=== PATIENT | female | born 1945 | race Caucasian/White ===

== ENCOUNTER → 2018-06-08 | Outpatient (CLI) | payer MEDICARE ==
[2018-06-08 13:29] LABS: Basophils % (A) 1 %; Eosinophils # (A) 0.2 k/uL (0-0.7); Eosinophils % (A) 4 %; HCT 49.4 % (34.0-46.0); HGB 15.3 gm/dL (11.4-16.0); Lymphocytes # (A) 1.3 k/uL (1.0-4.8); Lymphocytes % (A) 24 %; MCH 29.4 pg (25.0-35.0); MCHC 30.9 g/dL (31.0-37.0); MCV 95.3 fL (80.0-100.0); Mean Platelet Volume 7.6; Monocytes # (A) 0.4 k/uL (0-1.0); Monocytes % (A) 7 %; Neutrophils # (A) 3.4 k/uL (1.3-7.7); Neutrophils % (A) 64 %; Platelet Count 260 k/uL (150-450); RBC 5.18 m/uL (3.80-5.40); RDW 14.4 % (11.5-15.5); WBC 5.3 k/uL (3.8-10.6)
[2018-06-08 13:52] LABS: ALT 173 U/L (9-52); AST 129 U/L (14-36); Albumin 3.8 g/dL (3.5-5.0); Alkaline Phosphatase 57 U/L (38-126); Anion Gap 7 mmol/L; Blood Urea Nitrogen 15 mg/dL (7-17); Calcium 9.5 mg/dL (8.4-10.2); Carbon Dioxide 26 mmol/L (22-30); Chloride 106 mmol/L (98-107); Cholesterol 205 mg/dL (<200); Glucose 102 mg/dL (74-99); HDL Cholesterol 66 mg/dL (40-60); LDL Cholesterol,Calculated 121 mg/dL (0-99); Potassium 4.6 mmol/L (3.5-5.1); Sodium 139 mmol/L (137-145); Total Bilirubin 0.4 mg/dL (0.2-1.3); Total Protein 6.9 g/dL (6.3-8.2); Triglycerides 91 mg/dL (<150)
[2018-06-08 14:08] LABS: T4, Free (Free Thyroxine) 1.26 ng/dL (0.78-2.19)
== END | disposition home or self-care (01) ==
LOC: LABWHC1 12:19
PROVIDERS: ATTEND Family Medicine
DX: E78.5 Hyperlipidemia, unspecified (principal); E03.9 Hypothyroidism, unspecified; Z20.9 Contact with and (suspected) exposure to unspecified communicable disease
CPT/HCPCS: 36415; 80053; 80061; 84439; 84443; 84481; 85025; 86803

== ENCOUNTER → 2018-06-24 | Outpatient (CLI) | payer MEDICARE ==
--- NOTE | 2018-06-24 10:40 | US ---
EXAMINATION TYPE: US liver DATE OF EXAM: 06/24/2018 COMPARISON: NONE CLINICAL HISTORY: 73-year-old female R74.8 Abn levels serum enzymes. TECHNIQUE: Multiple sonographic images of the right upper quadrant are obtained. FINDINGS: MAILROOM COURIER NOTES: Difficult and limited exam due to patient body habitus and overlying bowel gas EXAM MEASUREMENTS: Liver Length: 17.0 cm Gallbladder Wall: 0.2 cm CBD: 0.4 cm Right Kidney: 11.0 x 5.3 x 4.4 cm Pancreas: Tail obscured by overlying bowel gas, visualized portions appear wnl Liver: Borderline in size, Attenuating, heterogeneous. Gallbladder: A couple calculi are present measuring up to 2.2 cm. No abnormal wall thickening, hydro pic change, or pericholecystic fluid. Evidence for sonographic Gonsales's sign: No CBD: wnl as visualized, distal portion obscured by bowel gas Right Kidney: No hydronephrosis. IMPRESSION: 1. Borderline hepatomegaly (17.0 cm) with hepatic steatosis. Correlate with LFTs, lipid profile, and patient risk factors. 2. Cholelithiasis with a couple gallstones measuring up to 2.2 cm. 3. No biliary ductal dilatation.
== END | disposition home or self-care (01) ==
LOC: RADUSWWP 07:31
PROVIDERS: ATTEND Family Medicine
DX: K80.20 Calculus of gallbladder without cholecystitis without obstruction (principal); K76.0 Fatty (change of) liver, not elsewhere classified
CPT/HCPCS: 76705

== ENCOUNTER → 2018-08-05 | Outpatient (CLI) | payer MEDICARE | END | disposition home or self-care (01) | LOC: LABWHC1 17:29 | PROVIDERS: ATTEND Surgery Plastic and Reconstructive Surgery | DX: Z01.810 Encounter for preprocedural cardiovascular examination (principal) | CPT/HCPCS: 36415; 93005 ==

== ENCOUNTER 2019-07-22 09:36 | Day surgery (SDC) | payer MEDICARE ==
[2019-07-21 08:19] VITALS: BMI 41.5
[~2019-07-22 09:36] MED LIST: LACTATED RINGERS 1,000 ML IV SCH
[2019-07-22] MEDS ORDERED: LACTATED RINGERS 1,000 ML IV ONE (09:52)
[2019-07-22 09:53] VITALS: TEMP 97.8
[2019-07-22] MEDS ORDERED: LIDOCAINE 1% 20 ML VIAL (10MG/ML) FOR IV START INTRADERMA ONE (09:53)
[2019-07-22] MEDS ORDERED: LIDOCAINE 1% INJ 10MG/ML (20 ML MDV) ONE (10:43)
[2019-07-22] MEDS ORDERED: PROPOFOL 10 MG/ML 20 ML VIAL IV ONE (10:43)
--- NOTE | 2019-07-22 11:03 | P.PCN ---
Date of Procedure: 07/22/19 Procedure(s) Performed: BRIEF HISTORY: Patient is a 74-year-old pleasant female scheduled for an elective colonoscopy as a part of screening for colorectal neoplasia. Her last colonoscopy was 10 years ago. PROCEDURE PERFORMED: Colonoscopy. PREOPERATIVE DIAGNOSIS: Screening for colon cancer. IV sedation per Anesthesia. PROCEDURE: After informed consent was obtained, the patient, was brought into the endoscopy unit. IV sedation was administered by Anesthesia under continuous monitoring. Digital rectal examination was normal. Initially the Olympus CF-160 flexible video colonoscope was then inserted in the rectum, gradually advanced into the cecum without any difficulty. Careful examination was performed as the scope was gradually being withdrawn. Ileocecal valve and the appendiceal orifice were visualized and appeared normal. Prep was excellent. Mucosa of the cecum, ascending colon, transverse colon, descending colon, sigmoid colon, and rectum appeared normal. Retroflexion was performed in the rectum and no lesions were seen. The patient tolerated the procedure well. IMPRESSION: Normal-appearing colon from rectum to cecum with no evidence of colorectal neoplasia. RECOMMENDATIONS: Findings of this examination were discussed with the patient as well as a family. She was advised to have a repeat screening colonoscopy in 10 years.
[2019-07-22 11:09] VITALS: RESP 16
[2019-07-22 11:23] VITALS: BP 154/87; PULSE 74
== END 2019-07-22 11:47 | disposition home or self-care (01) ==
LOC: ORWHC2ENDO 09:36
PROVIDERS: ATTEND Internal Medicine Gastroenterology
DX: Z12.11 Encounter for screening for malignant neoplasm of colon (principal); E07.9 Disorder of thyroid, unspecified; Z88.1 Allergy status to other antibiotic agents; Z87.19 Personal history of other diseases of the digestive system; Z79.890 Hormone replacement therapy; Z79.82 Long term (current) use of aspirin; Z79.899 Other long term (current) drug therapy
CPT/HCPCS: J2001; J2704; G0121

== ENCOUNTER 2019-12-10 19:42 | Emergency (ER) | payer MEDICARE ==
[2019-12-10 19:48] VITALS: BP 169/82; PULSE 103; RESP 20; TEMP 98.1
--- NOTE | 2019-12-10 21:06 | ED ---
Skin/Abscess/FB HPI - General Chief complaint: Skin/Abscess/Foreign Body Stated complaint: Open Wound Eye Time Seen by Provider: 12/10/19 19:49 Source: patient Mode of arrival: ambulatory Limitations: no limitations - History of Present Illness Initial comments: Patient is a 74-year-old female presenting to the emergency Department with complaints of a wound on her left eyelid that opened up. Patient states she had a cosmetic procedure performed on Friday and initially had dissolvable sutures in place over she feels like she either excellently with some outdoor they dissolved the next day. Patient states on Friday she called her doctor who had her come back and and 2 nylon sutures were placed. Patient states she believes those sutures have come out as she noticed her wound is still appears to be opened. She denies any fever, chills, yellow drainage from the area. She has been applying topical antibiotic 2-3 times a day for the past week. She has no other complaints at this time. She denies eye pain, blurry vision. Upon arrival to the ER her vital signs are normal. - Related Data Home Medications Medication Instructions Recorded Confirmed Cholecalciferol (Vitamin D3) 400 unit PO DAILY 07/21/19 07/21/19 [Vitamin D3] Levothyroxine Sodium [Synthroid] 75 mcg PO DAILY 07/21/19 07/21/19 Allergies Allergy/AdvReac Type Severity Reaction Status Date / Time tetracycline Allergy Rash/Hives Verified 12/10/19 19:48 Review of Systems ROS Statement: Those systems with pertinent positive or pertinent negative responses have been documented in the HPI. ROS Other: All systems not noted in ROS Statement are negative. Past Medical History Past Medical History: Eye Disorder, Thyroid Disorder Additional Past Medical History / Comment(s): SOME BLOOD IN STOOL, GLAUCOMA , History of Any Multi-Drug Resistant Organisms: None Reported Past Surgical History: Hysterectomy, Joint Replacement Additional Past Surgical History / Comment(s): LASER TREATMENT - BOTH EYES FOR GLAUCOMA , COLONOSCOPY, TOTAL RIGHT KNEE, BILATERAL CATARACT SURGERY WITH LENS IMPLANTS, Past Anesthesia/Blood Transfusion Reactions: No Reported Reaction Past Psychological History: No Psychological Hx Reported Smoking Status: Former smoker Past Alcohol Use History: None Reported Past Drug Use History: None Reported - Past Family History Brother(s) Family Medical History: Cancer General Exam - General Exam Comments Initial Comments: GENERAL: Well-appearing, well-nourished and in no acute distress. HEAD: Atraumatic, normocephalic. EYES: Pupils equal round and reactive to light, extraocular movements intact, sclera anicteric, conjunctiva are normal. ENT: TMs normal, nares patent, oropharynx clear without exudates. Moist mucous membranes. NECK: Normal range of motion, supple without lymphadenopathy or JVD. LUNGS: Breath sounds clear to auscultation bilaterally and equal. No wheezes rales or rhonchi. HEART: Regular rate and rhythm without murmurs, rubs or gallops. EXTREMITIES: Normal range of motion, no pitting or edema. No clubbing or cyanosis. NEUROLOGICAL: Normal speech, normal gait. PSYCH: Normal mood, normal affect. SKIN: Warm, Dry, normal turgor, no rashes. Patient has a 1 cm superficial open wound of the right eyelid, medial aspect. There are no signs of infection including no erythema, no drainage. No pain to palpation along the wound. There are [address] on the bottom side of the wound. Limitations: no limitations Course Vital Signs 12/10/19 19:46 Temperature 98.1 F Pulse Rate 103 H Respiratory 20 Rate Blood Pressure 169/82 O2 Sat by Pulse 96 Oximetry Procedures - Procedures Initial comment: Patient has a 1 cm superficial open wound on the right medial eyelid secondary to a cosmetic procedure performed 4 days ago. This wound is not able to be closed with sutures secondary to increased risk of infection. Wound was cleaned, 2 nylon sutures were removed that were placed 2 days ago. Steri-Strips were applied to approximate the edges. Patient tolerated procedure well. Medical Decision Making - Medical Decision Making Patient is a 74-year-old female here with a superficial open wound of the right eyelid secondary to cosmetic procedure performed 4 days ago. Patient does have 2 nylon sutures on the bottom portion of the wound that have ripped out from the top portion. There are no signs of infection. I discussed with patient that I'm not able to reclose the wound with sutures secondary to risk of infection. The sutures that were in place were removed, the area was cleaned and 2 Steri- Strips were applied to approximate the edges. Patient will follow back up with her eye doctor on Friday. She is stable for discharge at this time and she is in agreement with this plan of care. Return parameters were discussed with the patient she verbalized understanding. Disposition Clinical Impression: Open wound of left eyelid Disposition: HOME SELF-CARE Condition: Stable Instructions (If sedation given, give patient instructions): Skin Adhesive Care (ED) Additional Instructions: Please return to the Emergency Department if symptoms worsen or any other concerns. Follow-up with eye doctor as discussed. Is patient prescribed a controlled substance at d/c from ED?: No Referrals: Yanick Ramirez MD [Primary Care Provider] - 1-2 days
== END 2019-12-10 21:06 | disposition home or self-care (01) ==
LOC: EC 19:42
DX: S01.102A Unspecified open wound of left eyelid and periocular area, initial encounter (principal); E07.9 Disorder of thyroid, unspecified; H40.9 Unspecified glaucoma; Z87.891 Personal history of nicotine dependence; Z88.1 Allergy status to other antibiotic agents; Z79.890 Hormone replacement therapy; Z97.3 Presence of spectacles and contact lenses; Z98.890 Other specified postprocedural states; X58.XXXA Exposure to other specified factors, initial encounter
CPT/HCPCS: 99282

== ENCOUNTER → 2020-08-10 | Outpatient (CLI) | payer MEDICARE | END | disposition home or self-care (01) | LOC: LABWHC1 14:04 | PROVIDERS: ATTEND Family Medicine | DX: Z03.818 Encounter for observation for suspected exposure to other biological agents ruled out (principal) | CPT/HCPCS: U0003; C9803 ==

== ENCOUNTER 2021-01-02 06:25 | Day surgery (SDC) | payer MEDICARE ==
[2020-12-29 13:51] VITALS: BMI 47.2
[~2021-01-02 06:25] MED LIST changes: -LACTATED RINGERS 1,000 ML IV SCH; +SODIUM CHLORIDE 0.9% 1,000 ML IV SCH
[2021-01-02] MEDS ORDERED: SODIUM CHLORIDE 0.9% 500 ML 500 ML IV ONE (07:00)
[2021-01-02 07:02] VITALS: TEMP 97.7
[2021-01-02] MEDS ORDERED: PROPOFOL 10 MG/ML 20 ML VIAL IV ONE (07:37)
[2021-01-02] MEDS ORDERED: KETAMINE 10 MG/ML 20 ML VIAL ONE (07:37)
[2021-01-02] MEDS ORDERED: MIDAZOLAM 2 MG/2 ML VIAL ONE (07:37)
--- NOTE | 2021-01-02 08:38 | CE ---
CARDIAC ELECTROPHYSIOLOGY REPORT CARDIOVERSION: DATE OF SERVICE: January 02, 2021 PERFORMING PHYSICIAN: Alexis Romano MD. PROCEDURE PERFORMED: Cardioversion. COMPLICATION: None. LEVEL OF SEDATION: The procedure was performed with deep sedation using propofol. PROCEDURE DESCRIPTION: After obtaining an informed consent, the patient was brought to the recovery room. The patient was put into sedation using propofol with REVERSE LOGISTICS ANALYST in the room. Subsequently, the patient was cardioverted from atrial fibrillation to normal sinus mechanism using 100 joules on first attempt. CONCLUSION: Successful cardioversion of atrial fibrillation to normal sinus mechanism using 100 joules on first attempt. MMODL / IJN: [id number] /
[2021-01-02 08:49] VITALS: RESP 16
[2021-01-02 09:28] VITALS: BP 103/62; PULSE 79
== END 2021-01-02 09:25 | disposition home or self-care (01) ==
LOC: CATHCVL 06:25
PROVIDERS: ATTEND Internal Medicine Interventional Cardiology
DX: I48.91 Unspecified atrial fibrillation (principal); I48.3 Typical atrial flutter; E66.01 Morbid (severe) obesity due to excess calories; E03.9 Hypothyroidism, unspecified; R60.1 Generalized edema; Z68.43 Body mass index [BMI] 50.0-59.9, adult; Z90.49 Acquired absence of other specified parts of digestive tract; Z79.890 Hormone replacement therapy; Z88.1 Allergy status to other antibiotic agents; Z97.2 Presence of dental prosthetic device (complete) (partial); Z79.01 Long term (current) use of anticoagulants; Z79.899 Other long term (current) drug therapy; Z90.710 Acquired absence of both cervix and uterus; Z96.651 Presence of right artificial knee joint
CPT/HCPCS: 92960; J2250; J2704

== ENCOUNTER 2021-01-29 11:02 | Day surgery (SDC) | payer MEDICARE, OTHER ==
[2021-01-17 10:07] VITALS: BMI 47.7
[~2021-01-29 11:02] MED LIST changes: +ALPRAZolam 0.25 MG TAB PO PRN; +ALPRAZolam 0.5 MG TAB PO PRN; +ASPIRIN 325 MG TAB PO STA; +HEPARIN SODIUM,PORCINE 10,000 UNIT in SODIUM CHLORIDE 0.9% 1,000 ML IRRIGATION PRN; +HEPARIN SODIUM,PORCINE 2,500 UNIT in SODIUM CHLORIDE 0.9% 250 ML IRRIGATION PRN; +NITROGLYCERIN SL TABS 0.4 MG TAB SUBLINGUAL PRN; -SODIUM CHLORIDE 0.9% 1,000 ML IV SCH; +SODIUM CHLORIDE 0.9% 1,000 ML in EMPTY BAG 1 BAG IV ONE
[2021-01-29] MEDS ORDERED: IV FLUID CONTINUATION 950 ML IV ONE (11:29)
[2021-01-29] MEDS ORDERED: SODIUM CHLORIDE 0.9% 1,000 ML IV ONE (11:30)
[2021-01-29] MEDS ORDERED: VERAPAMIL 2.5 MG/ML 2 ML AMP ONE (11:49)
[2021-01-29] MEDS ORDERED: LIDOCAINE 1% INJ 10MG/ML (20 ML MDV) ONE (11:50)
[2021-01-29 12:04] VITALS: TEMP 97.9
[2021-01-29] MEDS ORDERED: fentaNYL (PF) 50 MCG/ML 2 ML AMP ONE (12:16)
[2021-01-29] MEDS ORDERED: HEPARIN SODIUM 1,000 UN/ML (10ML VL) ONE (12:16)
[2021-01-29 12:20] LABS: Calcium 9.6 mg/dL (8.4-10.2)
[2021-01-29 12:22] LABS: Basophils # (A) 0.1 k/uL (0-0.2); Basophils % (A) 1 %; Eosinophils # (A) 0.1 k/uL (0-0.7); Eosinophils % (A) 1 %; HCT 49.4 % (34.0-46.0); HGB 15.6 gm/dL (11.4-16.0); Lymphocytes # (A) 1.4 k/uL (1.0-4.8); Lymphocytes % (A) 20 %; MCH 29.5 pg (25.0-35.0); MCHC 31.5 g/dL (31.0-37.0); MCV 93.6 fL (80.0-100.0); Mean Platelet Volume 8.8; Monocytes # (A) 0.4 k/uL (0-1.0); Monocytes % (A) 6 %; Neutrophils # (A) 4.9 k/uL (1.3-7.7); Neutrophils % (A) 70 %; Platelet Count 252 k/uL (150-450); RBC 5.28 m/uL (3.80-5.40); RDW 14.7 % (11.5-15.5)
[2021-01-29] MEDS ORDERED: fentaNYL (PF) 50 MCG/ML 2 ML AMP IVP ONE (12:42)
[2021-01-29] MEDS ORDERED: LIDOCAINE 1% INJ 10MG/ML (20 ML MDV) SQ ONE (12:42)
[2021-01-29] MEDS ORDERED: MIDAZOLAM 2 MG/2 ML VIAL IVP ONE (12:42)
[2021-01-29 12:43] LABS: Potassium 4.7 mmol/L (3.5-5.1)
[2021-01-29] MEDS: VERAPAMIL SYRINGE (5 MG/10 ML) INTRAARTER ONE ×2 (12:44→12:53)
[2021-01-29] MEDS ORDERED: HEPARIN SODIUM 1,000 UN/ML (10ML VL) IV ONE (12:46)
[2021-01-29] MEDS ORDERED: IOPAMIDOL-370 125ML BTL INJ ONE (12:55)
[2021-01-29] MEDS ORDERED: RX INFO: IV CONTRAST WAS GIVEN 1 EACH MISC MISCELLANE PRN (12:59)
[2021-01-29] MEDS ORDERED: SODIUM CHLORIDE 0.9% 1,000 ML IV SCH (13:00)
--- NOTE | 2021-01-29 13:40 | CC ---
CARDIAC CATHETERIZATION REPORT DATE OF SERVICE: January 29, 2021 PERFORMING PHYSICIAN: Alexis Romano MD. PROCEDURE PERFORMED: 1. Selective right and left coronary angiogram. 2. Left heart catheterization. INDICATION: This is a 75-year-old female patient with history of paroxysmal atrial fibrillation, who was seen recently in the office experiencing symptoms of shortness of breath and she underwent myocardial perfusion imaging stress test and that showed anterior ischemia. Because of that, a heart catheterization was advised. APPROACH: Right radial artery. COMPLICATION: None. LEVEL OF SEDATION: Moderate with sedation length of 12 minutes. PROCEDURE DESCRIPTION: After obtaining an informed consent, the patient was brought to the cardiac labor relations director. The right radial artery was cannulated using micropuncture technique, the micropuncture wire passed easily then I placed a 6-Turkmen sheath at the right radial artery. After that I did selective right and left coronary angiogram using JR4 and JL3.5 catheters. Left heart catheterization was performed using 5-Turkmen pigtail catheter. The procedure was completed without any complication. SELECTIVE CORONARY ANGIOGRAM: 1. The RCA is a large caliber vessel. It is a dominant vessel, appeared to be angiographically normal. It bifurcates distally into PDA and PLV branches, both appeared to be angiographically normal. 2. The left main is angiographically normal. It bifurcates into left circumflex and left anterior descending artery. 3. The left circumflex is a large caliber vessel. It is a nondominant vessel. The left circumflex is angiographically normal. It gives rise into the first and second obtuse marginal branches, they appear to be angiographically normal. 4. The LAD is a large caliber vessel. The LAD is angiographically normal. It gives rise into multiple diagonal branches, both appeared to be angiographically normal. HEMODYNAMICS: The LVEDP was 10 to 12 mmHg without significant gradient across the aortic valve. CONCLUSION: 1. Normal coronary angiogram. 2. Normal LVEDP. POSTPROCEDURE MANAGEMENT: Medical treatment and follow up with the patient. MMODL / IJN: [id number] /
[2021-01-29 15:05] VITALS: RESP 18
[2021-01-29 18:09] VITALS: BP 121/60; PULSE 98
== END 2021-01-29 18:00 | disposition home or self-care (01) ==
LOC: CATHCVL 11:02
PROVIDERS: ATTEND Internal Medicine Interventional Cardiology
DX: R06.02 Shortness of breath (principal); R94.39 Abnormal result of other cardiovascular function study; I48.0 Paroxysmal atrial fibrillation; I48.3 Typical atrial flutter; E66.9 Obesity, unspecified; Z79.01 Long term (current) use of anticoagulants; Z68.42 Body mass index [BMI] 45.0-49.9, adult; Z72.0 Tobacco use; Z79.890 Hormone replacement therapy; Z79.899 Other long term (current) drug therapy; Z82.49 Family history of ischemic heart disease and other diseases of the circulatory system
CPT/HCPCS: 93458; 80048; 85025; C1894; J2250; J2001; J3010; J1644; Q9967

== ENCOUNTER → 2021-03-05 | Day surgery (SDC) | payer MEDICARE ==
[2021-02-28 14:02] VITALS: BMI 49.1
[~2021-03-05] MED LIST changes: -ALPRAZolam 0.25 MG TAB PO PRN; -ALPRAZolam 0.5 MG TAB PO PRN; -ASPIRIN 325 MG TAB PO STA; -HEPARIN SODIUM,PORCINE 10,000 UNIT in SODIUM CHLORIDE 0.9% 1,000 ML IRRIGATION PRN; -HEPARIN SODIUM,PORCINE 2,500 UNIT in SODIUM CHLORIDE 0.9% 250 ML IRRIGATION PRN; +LACTATED RINGERS 1,000 ML IV SCH; +LIDOCAINE 1% INJ 10MG/ML (20 ML MDV) ONE; -NITROGLYCERIN SL TABS 0.4 MG TAB SUBLINGUAL PRN; +ONDANSETRON 4 MG/2 ML VIAL IVP ONE; +PROPOFOL 10 MG/ML 20 ML VIAL IV ONE; +SODIUM CHLORIDE 0.9% 1,000 ML IV SCH; -SODIUM CHLORIDE 0.9% 1,000 ML in EMPTY BAG 1 BAG IV ONE; +SODIUM CHLORIDE 0.9% 500 ML 500 ML IV ONE
[2021-03-05 07:00] VITALS: TEMP 98.3
[2021-03-05 07:21] LABS: Calcium 9.3 mg/dL (8.4-10.2)
[2021-03-05 07:22] LABS: Potassium 5.1 mmol/L (3.5-5.1)
--- NOTE | 2021-03-05 08:40 | CE ---
CARDIAC ELECTROPHYSIOLOGY REPORT CARDIOVERSION: DATE OF SERVICE: March 05, 2021. PERFORMING PHYSICIAN: Alexis Romano MD. PROCEDURE PERFORMED: Successful cardioversion of atrial fibrillation to normal sinus mechanism using 200 joules on first attempt. INDICATION: Atrial fibrillation. LEVEL OF SEDATION: Sedation was performed using propofol with STATISTICAL METHODS TEACHER in the room. PROCEDURE DESCRIPTION: After transesophageal echocardiogram was performed and left atrial appendage thrombus was ruled out, we proceeded with cardioversion. The patient cardioverted from atrial fibrillation to normal sinus mechanism using 200 joules on first attempt. CONCLUSION: Successful cardioversion of atrial fibrillation to normal sinus mechanism using 200 joules on first attempt. MMODL / IJN: [id number] /
--- NOTE | 2021-03-05 13:52 | ECHOT ---
TRANSESOPHAGEAL ECHOCARDIOGRAM DATE OF SERVICE: March 05, 2021 PROCEDURE PERFORMED: Transesophageal echocardiogram. INDICATION: Atrial fibrillation. COMPLICATION: None. LEVEL OF SEDATION: Sedation was performed using propofol with TRUCK RENTAL MANAGER in the room. COMPLICATIONS: None. PROCEDURE DESCRIPTION: After obtaining an informed consent, the patient was brought to the recovery room. A pulse oximetry and heart rate monitor were attached to the patient. Subsequently, the patient was turned into left lateral position. A bite guard was placed after the patient's throat was sprayed using lidocaine. After that I did advance the transesophageal echocardiogram probe through the mid esophageal where 2D echocardiogram images as well as color Doppler, pulse Doppler, and continuous-wave Doppler were performed from multiple angles. Particular attention was made to the left atrial appendage. After that, the procedure was completed without any complication. FINDINGS: The left ventricular dimension appeared to be within normal limits. Left ventricular systolic function might be of the low limits of normal with EF around 50%. Right ventricle appeared to be mildly dilated. The left atrium and right atrium appeared to be mildly dilated. The left atrial appendage appeared to be free from any thrombus. The interatrial septum appeared to be aneurysmal with evidence of gaqkg-gy-east and possibly trgn-nz-syjiu shunt. The left atrial appendage appeared to be free from any thrombus. The aortic valve appeared to be trileaflet valve without stenosis or regurgitation. The mitral valve seems to be mildly thickened with mild to moderate MR. There was mild to moderate tricuspid regurgitation. The pulmonic valve appeared to have mild pulmonic insufficiency. No evidence of pericardial effusion identified. CONCLUSION: 1. Intact left atrial appendage without any evidence of thrombus. 2. Aneurysmal interatrial septum with evidence of ubpsl-zv-bkxp and possibly left-to- right shunt. 3. Dilated right atrium and right ventricle. 4. Trileaflet aortic valve without stenosis or regurgitation. 5. Thickened mitral valve leaflets with mild to moderate mitral regurgitation. 6. Mild to moderate tricuspid regurgitation. 7. Low normal left ventricular systolic function. 8. No evidence of pericardial effusion. POSTPROCEDURE MANAGEMENT: 1. Proceed with a cardioversion. 2. Possibly close the patent foramen ovale which causing large vpxhy-pc-cxsh and also hvmz-zj-stuxq shunt. MMODL / IJN: [id number] /
[2021-03-05 15:52] VITALS: RESP 16
[2021-03-05 15:57] VITALS: BP 98/57; PULSE 62
== END ==
LOC: CATHCVL 06:19
PROVIDERS: ATTEND Internal Medicine Interventional Cardiology
DX: I48.91 Unspecified atrial fibrillation (principal); I25.3 Aneurysm of heart; I08.1 Rheumatic disorders of both mitral and tricuspid valves; E03.9 Hypothyroidism, unspecified; E66.9 Obesity, unspecified; Z68.43 Body mass index [BMI] 50.0-59.9, adult; I48.92 Unspecified atrial flutter; Z79.01 Long term (current) use of anticoagulants; Z79.899 Other long term (current) drug therapy; Z79.890 Hormone replacement therapy
CPT/HCPCS: 93312; 93320; 93325; 92960; 80048; 87635; J2405; J2001; J2704

== ENCOUNTER → 2022-06-04 | Outpatient (CLI) | payer MEDICARE ==
--- NOTE | 2022-06-05 19:22 | MM ---
Reason for Exam: Screening (asymptomatic). Last mammogram was performed 5 year(s) and 9 month(s) ago. Patient History: Menarche at age 16. First Full-Term at age 21. Hysterectomy at age 63. Postmenopausal. Estrogen for 7 years, 8 months. Progesterone for 7 years, 8 months. Risk Values: Haydee 5 year model risk: 1.4%. NCI Lifetime model risk: 2.7%. Prior Study Comparison: 09/02/2008 Bilateral Screening Mammogram, [facility]. 09/05/2009 Bilateral Screening Mammogram, [facility]. 11/01/2010 Bilateral Screening Mammogram, [facility]. 08/26/2016 Bilateral Screening Mammogram, [facility]. Tissue Density: There are scattered fibroglandular densities. Findings: Analyzed By CAD. Chronic nodularity low axillary tails and subareolar right breast. No significant change from prior exams. Overall Assessment: Benign, BI-RAD 2 Management: Screening Mammogram of both breasts in 1 year. 1. Patient should continue monthly self breast exams. 2. A clinical breast exam by your physician is recommended on an annual basis. 3. This exam should not preclude additional follow-up of suspicious palpable abnormalities. Electronically signed and approved by: Evy Rivera M.D. Radiologist
== END | disposition home or self-care (01) ==
LOC: RADMAMWWP 07:50
PROVIDERS: ATTEND Family Medicine
DX: Z12.31 Encounter for screening mammogram for malignant neoplasm of breast (principal); Z78.0 Asymptomatic menopausal state
CPT/HCPCS: 77063; 77067

== ENCOUNTER → 2022-07-19 | Outpatient (CLI) | payer MEDICARE | END | disposition home or self-care (01) | LOC: LABPAT 15:28 | PROVIDERS: ATTEND Orthopaedic Surgery | DX: Z01.812 Encounter for preprocedural laboratory examination (principal); Z22.322 Carrier or suspected carrier of Methicillin resistant Staphylococcus aureus; M17.12 Unilateral primary osteoarthritis, left knee | CPT/HCPCS: 87070 ==

== ENCOUNTER 2022-07-23 09:25 | Observation (INO) | payer MEDICARE ==
[2022-07-18 16:04] VITALS: BMI 48.2
--- NOTE | 2022-07-22 09:21 | P.HPOR ---
History of Present Illness H&P Date: 07/22/22 Chief Complaint: Left knee pain The patient is a 77-year-old retired female who presents with progressive left knee pain for the past several years worsening recently. She's having a difficult time with any weightbearing activities. She's been working on weight loss but has a difficult time with physical exercise. She notes daily pain. She's tried medications in addition to injections with only partial temporary relief. Review of Systems As per HPI Past Medical History Past Medical History: Eye Disorder, Osteoarthritis (OA) Additional Past Medical History / Comment(s): HX [id number]. MACULAR DEGENERATION History of Any Multi-Drug Resistant Organisms: None Reported Past Surgical History: Heart Catheterization, Hysterectomy, Joint Replacement Additional Past Surgical History / Comment(s): LASER TREATMENT - BOTH EYES FOR GLAUCOMA , COLONOSCOPY, TOTAL RIGHT KNEE, BILATERAL CATARACT SURGERY WITH LENS IMPLANTS, cardioversion 01-02-21, CARDIOVERSION X 2, RECTOCELE Past Anesthesia/Blood Transfusion Reactions: No Reported Reaction Smoking Status: Former smoker - Past Family History Brother(s) Family Medical History: Cancer Additional Family Medical History / Comment(s): 2 BROTHERS WITH CANCER Medications and Allergies Home Medications Medication Instructions Recorded Confirmed Type Vit C/E/Zn/Coppr/Lutein/Zeaxan 1 each PO DAILY 07/18/22 07/18/22 History [Preservision Areds 2 Softgel] Allergies Allergy/AdvReac Type Severity Reaction Status Date / Time tetracycline Allergy Rash/Hives Verified 03/05/21 06:36 Physical Examination - Knee left Appearance: effusion Effusion grade: grade 1 Varus alignment in stance: 5 degrees Tenderness with palpation: medial Gait: limping ROM: extension: -10 degrees ROM: flexion: 110 degrees Strength: extension: 5/5 Strength: flexion: 5/5 Results The patient is a well-developed well-nourished female approximately 5 foot 1, 250 pounds of endomorphic habitus. HEENT exam is nonfocal, neck is supple. She has painless passive motion of the left hip. Straight leg raise is negative. Her distal neurovascular exam appears intact to left lower extremity. - Diagnostic results Knee x-ray: image reviewed (Weightbearing notch, lateral, and merchant views of the left knee obtain the office show severe medial compartment narrowing with cyio-vd-gymm changes and subchondral sclerosis.) Assessment and Plan Assessment: Left knee severe tricompartmental osteoarthrosis Obesity Plan: I talked to the patient with regarding her condition and treatment options. At this point she is quite symptomatic and limited because of her arthritis despite conservative measures. After thorough discussion she has proceed with surgery. We'll plan to proceed with left total knee arthroplasty. We will institute DVT prophylaxis postoperatively. Risks and benefits were discussed at length in layman's terms. Time with Patient: Less than 30
[~2022-07-23 09:25] MED LIST changes: +ACETAMINOPHEN TAB 500 MG TAB PO PRN; +DEXAMETHASONE SOD PHOSPHATE 4 MG/ML 1 ML VIAL IV ONE; +HYDROmorphone 0.5 MG/0.5 ML SYRINGE IVP PRN; -LACTATED RINGERS 1,000 ML IV SCH; +LIDOCAINE 1% (10MG/ML) FOR IV START INTRADERMA PRN; -LIDOCAINE 1% INJ 10MG/ML (20 ML MDV) ONE; +MELOXICAM 7.5 MG TAB PO PRN; +MIDAZOLAM 2 MG/2 ML VIAL IV PRN; -PROPOFOL 10 MG/ML 20 ML VIAL IV ONE; -SODIUM CHLORIDE 0.9% 1,000 ML IV SCH; -SODIUM CHLORIDE 0.9% 500 ML 500 ML IV ONE; +TRANEXAMIC ACID IN NACL,ISO-OS 1,000 MG in SALINE 1 100ML.BAG IVPB PRN
[2022-07-23] MEDS ORDERED: LACTATED RINGERS 1,000 ML IV ONE ×3 (09:47→12:44)
[2022-07-23] MEDS ORDERED: MIDAZOLAM 2 MG/2 ML VIAL IVP ONE (09:59)
[2022-07-23] MEDS ORDERED: fentaNYL (PF) 50 MCG/ML 2 ML AMP IVP ONE (09:59)
[2022-07-23] MEDS ORDERED: ROPIVACAINE 5 MG/ML 30 ML VIAL ONE (10:15)
[2022-07-23] MEDS ORDERED: SODIUM CHLORIDE 0.9% (PF) 10 ML VIAL ONE (10:15)
[2022-07-23] MEDS ORDERED: MIDAZOLAM 2 MG/2 ML VIAL ONE (10:15)
[2022-07-23] MEDS ORDERED: PHENYLEPHRINE-0.9% NACL SYG 1,000 MCG/10 ML SYRINGE ONE (10:15)
[2022-07-23] MEDS ORDERED: PROPOFOL 10 MG/ML 20 ML VIAL IV ONE (10:15)
[2022-07-23] MEDS ORDERED: fentaNYL (PF) 50 MCG/ML 2 ML AMP ONE (10:15)
[2022-07-23] MEDS ORDERED: TRANEXAMIC ACID IN NACL,ISO-OS 1,000 MG/100 ML BAG ONE (10:15)
[2022-07-23] MEDS ORDERED: ceFAZolin 3,000 MG in SODIUM CHLORIDE 0.9% IRRIGATIO 3,000 ML IRRIGATION ONE (10:46)
[2022-07-23] MEDS ORDERED: HYDROcodone/APAP 5-325MG 1 EACH TAB PO PRN (12:03)
[2022-07-23] MEDS ORDERED: HYDROmorphone 1 MG/ML 1 ML SYRINGE IVP PRN (12:03)
[2022-07-23] MEDS ORDERED: NALOXONE 0.4 MG/ML 1 ML VIAL IV PRN (12:03)
--- NOTE | 2022-07-23 12:20 | P.OP ---
Date of Procedure: 07/23/22 Preoperative Diagnosis: Left knee severe tricompartmental osteoarthrosis Postoperative Diagnosis: Same Procedure(s) Performed: Left total knee arthroplastycementedcruciate retaining Implants: Depuy Attune size 6 narrow cemented femoral component, size 5 cemented tibial component, 10 mm articular surface, 35 mm cemented patellar component. This is a cruciate retaining implant. Anesthesia: regional, spinal Surgeon: Rasheed Cunningham Advanced Manufacturing Technician #1: Kirt Briones Estimated Blood Loss (ml): 50 Pathology: other (Bone fragments) Condition: stable Disposition: PACU Indications for Procedure: The patient's a 77-year-old female who presents with progressive left knee pain secondary to osteoarthrosis despite conservative measures. A discussion of the risks and benefits of operative intervention versus tinea conservative measures was made with patient. She opted to proceed with surgery. Operative risks to include infection, neurovascular injury, development of blood clots, fracture, possible component loosening/failure and need for subsequent procedures was discussed. Informed consent was obtained. Operative Findings: As below Description of Procedure: The patient was brought to the operating room, and after induction of spinal anesthesia the left lower extremity was prepped and draped in a normal fashion. The tourniquet was inflated to 270 mmHg. A longitudinal incision extending 3 finger breaths above the superior pole of the patella extending to the medial aspect the tibial tubercle was then made. The skin and subcutaneous tissues were divided sharply. Electrocautery was used for hemostasis. A medial parapatellar arthrotomy was then performed. The medial soft tissues to include the superficial and deep portions of the medial collateral ligament as well as the medial hamstring tendons were elevated subperiosteally. The proximal medial tibia osteophytes were carefully removed. The patella was everted. The knee was flexed. A portion of the retropatellar fat pad was excised sharply. The anterior cruciate ligament was sacrificed. A starting hole was made in the distal femur 1 cm anterior to the posterior cruciate origin. An intramedullary femoral guide was gently inserted planning on 5 valgus distal cut with 9 mm distal resection. The cutting block was pinned in place. The distal cut was then made. The posterior referencing sizing guide was utilized. 3 of external rotation was built into the system and verified off the trans- epicondylar axis and the posterior condyles. I felt size 6 narrow was most appropriate. The cutting block was pinned in place. The anterior, posterior, and chamfer cuts were then made. The bone fragments were removed. A sulcus cut was then made with the appropriate guide. The trial size 6 femoral component was then placed and was fully seated. There was good anterior to posterior and medial to lateral fit. The distal peg holes were then drilled. The trial component was then removed. Attention was then paid towards preparing the proximal tibia. An extra medullary guide was utilized in line with the tibial shaft and second metatarsal distally. A 7 posterior slope was planned. I planned on 2 mm resection from the medial compartment. The cutting block was pinned in place. The proximal tibial cut was then made. The bone was removed in one fragment. The remnants of the medial and lateral menisci were excised the capsule junction with electrocautery. The tibia sized most appropriately at size 5. The posterior osteophytes off the distal femur were carefully removed with a curved osteotome. The trial tibial and femoral components were placed along with a 10 millimeters articular surface. I was able to obtain full flexion and extension with good stability with varus and valgus stress. After several flexion and extension cycles, the tibial rotation was marked with electrocautery in line with the medial one third of the tibial tubercle. Attention was then paid towards preparing the patella. A patella reamer was utilized taking this down to 14 mm of bone stock. A good flush cut was made. The patella sized most appropriately at 35 millimeters. The peg holes were then drilled. The trial component was placed. The knee was taken through a range of motion. I had good patellofemoral tracking with no hands technique. The trial components were then removed. The tibia was prepared in the appropriate rotation with appropriate drill and keel punch. The flexion and extension gaps were checked and felt to be symmetric. The posterior soft tissues were injected with ropivacaine. The bony surfaces were prepared with pulsatile lavage and dried. The deep tibial component was then cemented in place and was fully seated. Excess cement was removed. The femoral component was cemented in place and was fully seated. Again excess cement was removed. The trial 10 millimeters surface was then inserted in the knee was put in full extension. The patella component was cemented in place. After the cement had sufficiently hardened, the knee was again taken through a range of motion. Again there was good stability in flexion and extension with varus and valgus stress. The trial articular surface was then removed. The final articular surface was placed and was impacted. Care was taken to avoid any soft tissue interposition. Pulsatile lavage was again utilized. The tourniquet was deflated with approximately 60 minutes total tourniquet time. There was minimal drainage therefore a deep drain was not placed. The medial parapatellar arthrotomy was then closed with #2 Ethibond suture. The subcutaneous tissues were reapproximated interrupted 2- 0 Vicryl sutures. The skin was reapproximated with 3-0 subarticular strata fix suture. Skin tape and adhesive was applied. A sterile dressing was applied. The patient was then awoken from sedation and transferred to recovery room in good condition. Blood loss was estimated at 50 milliliters. No complications were incurred. Sponge and needle counts were correct at the end the case. Kirt DURAN assisted during the major components this case to include exposure, bone resection, and implantation.
[2022-07-23] MEDS ORDERED: ROPIVACAINE 1,100 MG, SODIUM CHLORIDE 0.9% 500 ML 330 ML, EMPTY PAIN BALL 1 EACH MISCELLANE PRN ×2 (12:24)
--- NOTE | 2022-07-23 12:54 | XR ---
EXAMINATION TYPE: XR knee limited LT DATE OF EXAM: 07/23/2022 COMPARISON: NONE TECHNIQUE: Two views submitted HISTORY: Post op FINDINGS: There is a prosthetic knee in near anatomic alignment. There is soft tissue edema and emphysema. IMPRESSION: 1. Postoperative change. Appears in near-anatomic alignment
--- NOTE | 2022-07-23 13:29 | P.ANPRN ---
Procedure Note - Anesthesia - Nerve Block Performed Left Adductor Canal Infusion Time Out Performed: Yes (958) Date of Procedure: 07/23/22 Procedure Start Time: 09:59 Procedure Stop Time: 10:05 Location of Patient: PreOp Indication: Acute Post-Operative Pain, Requested by Surgeon Specifically requested for management of pain by : Rasheed Cunningham Sedation Type: Sedate with meaningful contact maintained Preparation: Sterile Prep, Sterile Dressing Position: Supine Catheter Depth at Skin (cm): 8 Catheter: None Needle Types: Pajunk Needle Gauge: Other (see comment) ([id number]) Ultrasound used to visualize needle placement: Yes Ultrasound used to observe medication spread: Yes Injectate: 0.5% Ropivacaine (see comment for volume) (15cc + 5cc nacl pf) Blood Aspirated: No Pain Paresthesia on Injection Noted: No Resistance on Injection: Normal Image Stored and Saved: Yes Events: Uneventful and Well Tolerated
--- NOTE | 2022-07-23 13:30 | P.ANPRN ---
Procedure Note - Anesthesia - Nerve Block Performed Left iPack Single Time Out Performed: Yes (958) Date of Procedure: 07/23/22 Procedure Start Time: : Procedure Stop Time: : Indication: Acute Post-Operative Pain, Requested by Surgeon Specifically requested for management of pain by : Rasheed Cunningham Sedation Type: Sedate with meaningful contact maintained Preparation: Sterile Prep Position: Supine Catheter: None Needle Types: Pajunk Needle Gauge: 21 Ultrasound used to visualize needle placement: Yes Ultrasound used to observe medication spread: Yes Injectate: 0.5% Ropivacaine (see comment for volume) (15cc + 5cc nacl pf) Blood Aspirated: No Pain Paresthesia on Injection Noted: No Resistance on Injection: Normal Image Stored and Saved: Yes Events: Uneventful and Well Tolerated
[2022-07-23] MEDS: HYDROmorphone 0.5 MG/0.5 ML SYRINGE IVP PRN (17:17)
[2022-07-23] MEDS: LACTATED RINGERS 1,000 ML IV SCH ×2 (18:28→21:54)
[2022-07-23] MEDS: HYDROcodone/APAP 7.5-325MG 1 EACH TAB PO PRN (19:40)
[2022-07-23] MEDS ORDERED: SENNOSIDES-DOCUSATE SODIUM 1 EACH TAB PO SCH (21:00)
[2022-07-24] MEDS: HYDROmorphone 0.5 MG/0.5 ML SYRINGE IVP PRN (06:30)
[2022-07-24 07:51] VITALS: BP 97/56; PULSE 75; RESP 17; TEMP 98.3
[2022-07-24] MEDS ORDERED: ONDANSETRON 4 MG/2 ML VIAL IVP PRN (08:48)
[2022-07-24] MEDS ORDERED: RIVAROXABAN 10 MG TAB PO SCH (09:00)
--- NOTE | 2022-07-24 09:13 | P.PN ---
Progress Note - Text Progress Note Date: 07/24/22 (056) Anesthesiology Postop day 1 status post total knee arthroplasty with adductor canal catheter. Patient doing well. VAS 5 out of 10. Gross strength intact in lower extremity. Afebrile. Denies alterations in sensorium. Catheter site intact. Heart regular rate Lungs nonlabored Abdomen nondistended Assessment: Postop day 1 status post total knee arthroplasty with adductor canal catheter Plan: All questions answered. Maintain catheter 2 more days with patient removal at home. Instructions were given at discharge.
--- NOTE | 2022-07-24 09:40 | CONS ---
CONSULTATION REASON FOR CONSULTATION: Regarding DJD and multiple medical issues, requested by Orthopedics. HISTORY OF PRESENT ILLNESS: This is a 77-year-old woman with a past medical history of DJD; history of atrial fibrillation, which has resolved, being followed by Dr. Priyank Alvarado; underwent left total knee arthroplasty. The patient is postoperatively slightly drowsy. There is no history of fever, rigors, or chills. No headache, loss of consciousness, or seizures. PAST MEDICAL HISTORY: Atrial fibrillation and history of DJD. HOME MEDICATIONS: Vitamins. ALLERGIES: Tetracyclines. FAMILY HISTORY: History of cancer in the family. SOCIAL HISTORY: Remote history of smoker. REVIEW OF SYSTEMS: Fourteen-point review of systems is negative except as mentioned earlier. PHYSICAL EXAMINATION: VITAL SIGNS: Pulse 54, blood pressure 118/77, respirations 20. HEENT: Conjunctivae are normal. NECK: No JVD. CARDIOVASCULAR: S1 and S2. RESPIRATORY: Breath sounds diminished at the bases. No rhonchi. No crackles. ABDOMEN: Soft and obese. LEGS: Status post knee arthroplasty. NERVOUS SYSTEM: Nonfocal. LABORATORY DATA: Not available. ASSESSMENT: 1. Status post left knee arthroplasty. 2. History of degenerative joint disease. 3. History of atrial fibrillation. 4. Multiple medical issues. RECOMMENDATIONS AND DISCUSSION: This is a 77-year-old woman, who presented after the surgery. At this time, the patient is relatively stable. Recommend resuming the home medications, DVT prophylaxis, and incentive spirometry. We will follow the patient closely with you. The patient will be asked to follow up with Dr. Priyank Alvarado closely after discharge. Thank you Dr. Cunningham. JOLYNN / GUI: [id number] /
[2022-07-24 10:40] LABS: Basophils # (A) 0.02 X 10*3/uL (0.00-0.10); Basophils % (A) 0.2 %; Eosinophils # (A) 0.01 X 10*3/uL (0.04-0.35); Eosinophils % (A) 0.1 %; HCT 38.6 % (37.2-46.3); Immature Grans, Automated 0.2 %; Lymphocytes # (A) 1.04 X 10*3/uL (0.90-5.00); Lymphocytes % (A) 9.5 %; MCH 31.4 pg (27.0-32.0); MCHC 33.7 g/dL (32.0-37.0); MCV 93.2 fL (80.0-97.0); Mean Platelet Volume 11.2 fL (9.5-12.2); Monocytes # (A) 0.87 X 10*3/uL (0.20-1.00); NRBC Per 100 WBC 0 /100 WBCS (0.0-0.0); Neutrophils # (A) 8.95 X 10*3/uL (1.80-7.70); Platelet Count 238 X 10*3/uL (140-440); RBC 4.14 X 10*6/uL (4.10-5.20); RDW 14.4 % (11.5-14.5); WBC 10.91 X 10*3/uL (4.50-10.00)
[2022-07-24] MEDS: HYDROcodone/APAP 7.5-325MG 1 EACH TAB PO PRN (10:54)
[2022-07-24] MEDS ORDERED: bisacodyL 10 MG SUPP RECTAL STA (11:49)
--- NOTE | 2022-07-24 11:52 | P.DS ---
Providers Date of admission: 07/24/22 07:15 Expected date of discharge: 07/24/22 Attending physician: Rasheed Cunningham Consults: 07/23/22 12:08 Consult Physician Routine Consulting Provider: Severino Small Consult Reason/Comments: Medical Management s/p left total knee arthroplasty Do you want consulting provider notified?: Yes Primary care physician: Priyank Alvarado [facility] Course: Date of admission: 07/23/2022 Date of discharge: 07/24/2022 Admission diagnosis: Left knee osteoarthritis Discharge diagnosis: Same Attending physician: Dr. Cunningham Surgical procedures: Left total knee arthroplasty Brief history: Patient is a 77-year-old female with a history of progressive primary left knee osteoarthritis. At this point patient has failed conservative treatment measures and has opted to proceed with a elective left total knee arthroplasty. Hospital course: Details of patient's surgery can be found in operative report. Patient tolerated the procedure well and was subsequently transported to orthopedic floor. Patient's orthopeidc and medical care was provided daily. Patient had daily laboratory tests performed for evaluation of overall blood counts. Patient had daily physical therapy to include strengthening range of motion as well as education with walker ambulation. Patient was treated with Xarelto for their postoperative DVT prophylaxis during their inpatient stay. Patient was noted to have a relatively uneventful postoperative course. Patient reported satisfactory pain control with oral pain medications by postoperative day 1. Patient showed satisfactory progress with physical therapy. Patient moved steadily through the program and had no difficulty meeting the goals by postoperative day 1. Given patient's otherwise satisfactory course and having met physical therapy goals, plan is to discharge patient home with health services on postoperative day 1. Discharge condition/disposition: Patient will be discharged home with health ser vices in stable condition. Discharge medications: Instructions are given on resumption of patient's normal daily medications per primary care recommendation, in addition patient will be prescribed Irwin; Zofran; Colace; Eliquis 2.5 mg BID x 2 weeks. Discharge instructions: 1. Wound care and infection precautions, keep incision dry and covered while showering, no lotions, creams, moisturizers. No soaking, tubs, pools, hottubs. Do not scrub over the incision. 2. Weight-bear as tolerated with walker / cane until follow-up. 3. Ice and elevate when necessary. Do not exceed 20 minutes per hour with ice pack. 4. Utilize compression sleeve until seen at first follow up appointment. 5. Visiting nursing care. 6. Home physical therapy including home CPM. 7. Pain meds and anticoagulants per prescription. 8. Pain medication has potential to cause constipation. Increase oral fluid and fiber intake. Contact primary care provider if you have not had a bowel movement within 48 hours after discharge 9. No anti-inflammatory medication until discussed at first post operative visit, this including Motrin, Aleve, Mobic, Diclofenac 10. Follow up in office at 2 weeks postop with Prasanth Hammond PA-C / Kirt Briones PA-C 11. Follow up with your primary care doctor 7-10 days after discharge. 12. Contact [facility] with any questions, . Keep incision clean, dry, intact. While showering, cover lesion tape with Saran wrap. Keep fusion tape on until follow-up appointment in office in 2 weeks Medications: Irwin; Zofran; Colace; Eliquis 2.5 mg BID x 2 weeks. Assessment: Left knee osteoarthritis Procedures: Left total knee arthroplasty Patient Condition at Discharge: Good Plan - Discharge Summary Discharge Rx Participant: Yes New Discharge Prescriptions: New Docusate [Colace] 100 mg PO DAILY #30 capsule Apixaban [Eliquis] 2.5 mg PO BID #60 tab HYDROcodone/APAP 7.5-325MG [Irwin 7.5] 1 each PO Q6HR PRN #36 tab PRN Reason: Pain No Action Vit C/E/Zn/Coppr/Lutein/Zeaxan [Preservision Areds 2 Softgel] 1 each PO DAILY Discharge Medication List Vit C/E/Zn/Coppr/Lutein/Zeaxan [Preservision Areds 2 Softgel] 1 each PO DAILY 07/18/22 [History] Apixaban [Eliquis] 2.5 mg PO BID #60 tab 07/24/22 [Rx] Docusate [Colace] 100 mg PO DAILY #30 capsule 07/24/22 [Rx] HYDROcodone/APAP 7.5-325MG [Irwin 7.5] 1 each PO Q6HR PRN #36 tab 07/24/22 [Rx] Follow up Appointment(s)/Referral(s): [facility], [NON-STAFF] - 1-2 Days ([facility] will call you to schedule your in home nursing and physical therapy visits. ) [facility] [NON-STAFF] - As Needed (Please call [facility] once home to arrange delivery of the Continuous Passive Motion (CPM) machine. ) Kirt Briones, PAC [PHYSICIAN MUD ANALYSIS OPERATOR] - 2 Weeks Activity/Diet/Wound Care/Special Instructions: Discharge instructions: 1. Wound care and infection precautions, keep incision dry and covered while showering, no lotions, creams, moisturizers. No soaking, tubs, pools, hottubs. Do not scrub over the incision. 2. Weight-bear as tolerated with walker / cane until follow-up. 3. Ice and elevate when necessary. Do not exceed 20 minutes per hour with ice pack. 4. Utilize compression sleeve until seen at first follow up appointment. 5. Visiting nursing care. 6. Home physical therapy including home CPM. 7. Pain meds and anticoagulants per prescription. 8. Pain medication has potential to cause constipation. Increase oral fluid and fiber intake. Contact primary care provider if you have not had a bowel movement within 48 hours after discharge 9. No anti-inflammatory medication until discussed at first post operative visit, this including Motrin, Aleve, Mobic, Diclofenac 10. Follow up in office at 2 weeks postop with Prasanth Hammond PA-C / Kirt Briones PA-C 11. Follow up with your primary care doctor 7-10 days after discharge. 12. Contact [facility] with any questions, . Keep incision clean, dry, intact. While showering, cover lesion tape with Saran wrap. Keep fusion tape on until follow-up appointment in office in 2 weeks Medications: Irwin; Zofran; Colace; Eliquis 2.5 mg BID x 2 weeks. Discharge Disposition: HOME WITH HOME HEALTH SERVICES
--- NOTE | 2022-07-24 16:34 | P.PN ---
Subjective Progress Note Date: 07/24/22 This is a 77-year-old female who was recently admitted under orthopedic services and underwent left total knee arthroplasty is being closely monitored. Patient follows with Dr. Alvarado in the outpatient setting home medications have been resumed and patient does have a follow-up appointment with Dr. Alvarado in the outpatient setting. Plan is for home with home care and rehab in the outpatient setting. incentive spirometer at the bedside and encourage the patient to take home and continue using at least 10 times every hour while awake. Patient is afebrile denies chest pain or shortness of breath. Patient reports she is passing gas although no bowel movement as of yet. Recommended Dulcolax s uppository and patient agreeable with this. Encouraged increased activity with continued pain management. Review of systems: Constitutional: No reports of fatigue, fever, or chills Cardiovascular: No reports of chest pain or palpitations Respiratory: No reports of shortness of breath or cough GI: no reports of nausea, no reports of of vomiting, reports passing gas with no bowel movement : No reports of dysuria or retention Neurovascular: reports left knee pain All medications have been reviewed PHYSICAL EXAMINATION: GENERAL: The patient is alert and oriented x4, Well developed, well nourished. Morbidly obese HEENT: Pupils are round and equally reacting to light. EOMI. no scleral icterus. No conjunctival pallor. Normocephalic, atraumatic. No pharyngeal erythema. No th yromegaly. CARDIOVASCULAR: S1 and S2 muffled PULMONARY: diminished breath sounds bilaterally with no wheezing or rhonchi noted. ABDOMEN: soft. Nontender on exam. obese. non-distended, normoactive bowel sounds. No palpable organomegaly. MUSCULOSKELETAL: No joint swelling or deformity. EXTREMITIES: No cyanosis, clubbing, or pedal edema. Left knee dressing is dry and intact NEUROLOGICAL: Gross neurological examination did not reveal any focal deficits. Diffuse weakness SKIN: No rashes. Assessment: Status post left knee arthroplasty History of degenerative joint disease History of atrial fibrillation GI prophylaxis DVT prophylaxis Full code Plan: Recommend to continue with current medications and management per orthopedic services. Patient has been seen and evaluated by PT/OT therapy recommending Homecare and will arrange for rehab in the outpatient setting. Patient currentl y receiving a walker at the bedside. Patient encouraged to continue using incentive spirometer at least 10 times every hour while awake. Recommend continue with pain management per orthopedic services. Patient does have a pain pump as well and will follow-up with orthopedics as scheduled. Patient is planning on discharge today. We will continue to follow during hospitalization. Thank you for this consultation. The impression and plan of care has been dictated by Theresa Marks, nurse practitioner as directed. Dr. Geovanny MD I have performed a history and examination and MDM of this patient, discussed the same with the dictator, and agree with the dictator's assessment and plan as written ,documented as a scribe. Based on total visit time, I have performed more than 50% of the visit. Any additional findings or plans will be noted. Objective - Vital Signs Vital signs: Vital Signs Temp 98.3 F 07/24/22 07:50 Pulse 75 07/24/22 07:50 Resp 17 07/24/22 07:50 BP 97/56 07/24/22 07:50 Pulse Ox 90 L 07/24/22 07:50 FiO2 Intake & Output 07/23/22 07/24/22 07/24/22 18:59 06:59 18:59 Intake Total 1255 Output Total 50 Balance 1205 Weight 117.7 kg Intake: IV 1055 Oral 200 Output: Estimated Blood Loss 50 Other: Voiding Method Toilet # Voids 1 - Labs CBC & Chem 7: 07/24/22 07:07 Labs: Abnormal Lab Results - Last 24 Hours (Table) 07/24/22 Range/Units 07:07 WBC 10.91 H (4.50-10.00) X 10*3/uL Neutrophils # 8.95 H (1.80-7.70) X 10*3/uL Eosinophils # 0.01 L (0.04-0.35) X 10*3/uL
== END 2022-07-24 15:20 | disposition home health service (06) ==
LOC: OR 09:25 → 4SSUR 12:12 → OR 07-24 07:15 → 4SSUR 07-24 07:15
PROVIDERS: ADMIT Orthopaedic Surgery; ATTEND Orthopaedic Surgery
DX: M17.12 Unilateral primary osteoarthritis, left knee (principal); M25.762 Osteophyte, left knee; G89.18 Other acute postprocedural pain; I48.91 Unspecified atrial fibrillation; E66.9 Obesity, unspecified; Z87.891 Personal history of nicotine dependence; Z79.899 Other long term (current) drug therapy; Z88.1 Allergy status to other antibiotic agents; Z80.9 Family history of malignant neoplasm, unspecified
CPT/HCPCS: 27447; 97161; 64999; 64448; 76942; 85025; 88300; 73560; G0378; C1713 ×2; C1776; J2250; J1100; J0690 ×3; J2405 ×2; J3010; J1170 ×3; J2795; J2370; J2704; 87070